=== PATIENT | female | born 1990 | race Caucasian/White ===

== ENCOUNTER 2018-07-09 00:14 | Emergency (ER) | payer MEDICAID ==
[~2018-07-09] VITALS: Ht 157.5 cm; Wt 94.5 kg
[~2018-07-09 00:14] MED LIST: CLIN300C85 PO
[2018-07-09 01:37] VITALS: BP 133/78
[2018-07-09] MEDS ORDERED: ketorolac trometh inj. 60 MG/2 ML VIAL IM ONE (02:25)
[2018-07-09] MEDS ORDERED: acetaminophen 325mg tablet PO ONE (02:25)
== END 2018-07-09 02:42 | disposition home or self-care (01) ==
LOC: ER 00:14
DX: R07.9 Chest pain, unspecified (principal); R68.84 Jaw pain; G89.29 Other chronic pain; Z79.2 Long term (current) use of antibiotics; Z56.0 Unemployment, unspecified
CPT/HCPCS: 93005; 96372; 99283; J1885

== ENCOUNTER 2020-11-12 23:09 | Emergency (ER) | payer MEDICAID ==
[~2020-11-12] VITALS: Ht 157.5 cm; Wt 94.1 kg
[~2020-11-12 23:09] MED LIST changes: +CLIN-97 PO; -CLIN300C85 PO
[2020-11-12] MEDS ORDERED: oxyCODONE/APAP 10/325mg tablet PO ONE (23:40)
[2020-11-12 23:59] VITALS: BP 161/78
== END 2020-11-13 00:02 | disposition home or self-care (01) ==
LOC: ER 23:10
DX: K02.9 Dental caries, unspecified (principal); K08.89 Other specified disorders of teeth and supporting structures; G89.29 Other chronic pain; Z56.0 Unemployment, unspecified; Z79.2 Long term (current) use of antibiotics
CPT/HCPCS: 99283